=== PATIENT | male | born 1935 | race African-American/Black ===

== ENCOUNTER 2021-09-13 08:35 | Outpatient (CLI) | payer MEDICARE, BC ==
[2021-09-13 21:42] LABS: SARS-CoV-2 PCR by NAA Not Detected (NotDetected)
== END 2021-09-13 08:36 | disposition home or self-care (01) ==
LOC: CSHLAB 08:35
PROVIDERS: ATTEND Internal Medicine Gastroenterology
DX: Z20.822 Contact with and (suspected) exposure to COVID-19 (principal); K62.5 Hemorrhage of anus and rectum; K63.5 Polyp of colon
CPT/HCPCS: U0003; U0005

== ENCOUNTER 2021-09-18 10:44 | Day surgery (SDC) | payer MEDICARE, BC ==
[2021-09-13 12:25] VITALS: BMI 32.3
[2021-09-18] MEDS ORDERED: PROPOFOL 40 ML ONE (10:47)
[2021-09-18] MEDS ORDERED: Lidocaine 1% PF 5 ML VIAL ONE (10:47)
[2021-09-18] MEDS ORDERED: Lidocaine 1% MPF 2 ML VIAL ONE (11:42)
[2021-09-18] MEDS ORDERED: PHENYLEPHRINE-NS 100 MCG/ML 10 ML SYRINGE ONE (12:54)
== END 2021-09-18 13:38 | disposition home or self-care (01) ==
LOC: CSHSDC 10:44
PROVIDERS: ATTEND Internal Medicine Gastroenterology
PROC: 0DBN8ZZ Excision of Sigmoid Colon, Via Natural or Artificial Opening Endoscopic (ICD-10-PCS; principal; 2021-09-18)
DX: C18.7 Malignant neoplasm of sigmoid colon (principal); K64.9 Unspecified hemorrhoids; I10 Essential (primary) hypertension; E78.5 Hyperlipidemia, unspecified; N40.0 Benign prostatic hyperplasia without lower urinary tract symptoms
CPT/HCPCS: 88305; J2704